=== PATIENT | female | born 2000 | race Two or more races ===

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

== ENCOUNTER 2021-11-24 09:33 | Outpatient (CLI) | payer OTHER | END 2021-11-24 09:44 | disposition home or self-care (01) | LOC: RAD 09:33 | PROVIDERS: ATTEND Orthopaedic Surgery | DX: M25.561 Pain in right knee (principal); M25.571 Pain in right ankle and joints of right foot ==

== ENCOUNTER 2021-12-15 07:06 | Outpatient (CLI) | payer OTHER | END 2021-12-15 07:18 | disposition home or self-care (01) | LOC: SONOGRAMA 07:06 | PROVIDERS: ATTEND Internal Medicine Cardiovascular Disease | DX: R10.9 Unspecified abdominal pain (principal); N39.0 Urinary tract infection, site not specified ==